=== PATIENT | female | born 1930 | race Caucasian/White ===

== ENCOUNTER 2017-04-23 18:57 | Inpatient (IN) ==
[2017-04-23] MEDS ORDERED: ALUM/MAG/SIMETH/LIDO VISC 1:1 30 ML BOTTLE PO STA (19:47)
[2017-04-23] MEDS ORDERED: METOPROLOL TARTRATE 25 MG TABLET PO STA (19:47)
[2017-04-23] MEDS ORDERED: NITROGLYCERIN 2% OINT 1 INCH/GM PACK TOP STA (19:47)
[2017-04-23] MEDS ORDERED: ONDANSETRON 4 MG/2 ML VIAL IV STA (19:47)
[2017-04-23] MEDS ORDERED: ASPIRIN 325 MG TABLET PO STA (19:47)
[2017-04-23 19:54] LABS: Basophils # 0.1 10*3/uL (0.0-0.2); Basophils % 0.6 % (0.0-0.8); Eosinophils # 0.3 10*3/uL (0.0-0.87); Eosinophils % 3.7 % (0.00-10.9); Hematocrit 38.4 VOL% (35.7-47.0); Hemoglobin 12.7 GM/DL (12.0-16.0); Immature Granulocytes % 0.3 %; Immature Granulocytes Absolute 0.02 #; Lymphocytes # 2.3 10*3/uL (1.4-4.0); Lymphocytes % 28.7 % (21.3-54.2); Mean Corpuscular HGB Conc 33.1 GM/DL (32-36); Mean Corpuscular Hemoglobin 33 PG (27-34); Mean Corpuscular Volume 100.5 FL (87-102); Mean Platelet Volume 10.3 FL (9.6-12.0); Monocytes # 0.5 10*3/uL (0.11-0.8); Monocytes % 5.9 % (1.7-12.7); Neutrophils # 4.8 10*3/uL (1.4-7.4); Neutrophils % 60.8 % (38.7-73.9); Platelet Count 304 T/CUMM (130-400); Red Blood Count 3.82 MC/CUMM (3.8-5.5); Red Cell Distribution Width 12.9 % (9.3-17.3); White Blood Count 7.9 T/CUMM (4-12)
[2017-04-23 20:00] LABS: PT Patient Result 10.4 SECS
[2017-04-23 20:17] LABS: Alanine Aminotransferase 22 U/L (13-56); Alkaline Phosphatase 181 U/L (45-117); Aspartate Amino Transferase 21 U/L (0-37); Bilirubin,Total < 0.39 MG/DL (0.2-1.0); Blood Urea Nitrogen 34 MG/DL (7-18); Calcium 8.7 MG/DL (8.5-10.1); Glucose 133 MG/DL (74-106); Magnesium 2.3 MG/DL (1.8-2.4); Osmolality,Calculated 297.7 MOS/KG (273-304); Sodium 145 MMOL/L (136-145)
[2017-04-23] MEDS ORDERED: NITROGLYCERIN 2% OINT 1 INCH/GM PACK TOP ONE (20:23)
[2017-04-23] MEDS ORDERED: ONDANSETRON 4 MG/2 ML VIAL ONE (20:23)
[2017-04-23] MEDS ORDERED: METOPROLOL TARTRATE 25 MG TABLET ONE (20:23)
[2017-04-23] MEDS ORDERED: ASPIRIN 325 MG TABLET ONE (20:23)
[2017-04-23] MEDS ORDERED: ALUM/MAG/SIMETH/LIDO VISC 1:1 30 ML BOTTLE PO ONE (20:24)
--- NOTE | 2017-04-23 20:48 | XRay Report ---
Exam: XR chest 1V portable Indication: Chest pain, history of coronary artery disease, CABG Comparison study: 12/23/2016 Findings: Cardiac silhouette is mildly enlarged, similar to prior. Median sternotomy wires noted. Low lung volumes are noted. Central perihilar interstitial prominence is similar prior likely representing scarring changes. No definite focal consolidation, pneumothorax or pleural effusion is identified. Impression: Essentially stable chronic interstitial changes and low lung volumes. No definite acute process identified. PROCEDURE INTERPRETED AT [facility] [place] DEPARTMENT OF RADIOLOGY Final Report Signed by: Viktor Aviles
--- NOTE | 2017-04-23 21:52 | Emergency Department Note ---
IAbdi Emily, am scribing for, and in the presence of, Rubén Owens MD 19: 54. Roman Dahl Charles R, MD, personally performed the services described in this documentation, ascribed by Yessenia Patton in my presence, and it is both accurate and complete . Arrival - Arrival Chief Complaint: Chest Pain Stated Complaint: SOB ED Nursing Triage Note: C/C pain between shoulder blades, short of breath, productive cough started earlier today. Mode of Arrival: Wheelchair Limitations: No Limitations Source: Patient - History of Present Illness HPI Narrative: Pt is a 86 y/o female who came to ED with c/o SOB and chest pain that has been ongoing for awhile. Pt has associated sxs of pain between shoulder blades and QUINTERO, mild productive cough and drinking water sometimes comes back up. Pt is on at home O2, especially when sleeps. Pt takes Lasix and Eliquis. PMHx of CHF , HTN, CAD. Onset (ago): hour(s) Consistency: constant Severity: moderate Severity scale (1-10): 5 Quality: aching Allergies/Adverse Reactions: Allergies Allergy/AdvReac Type Severity Reaction Status Date / Time morphine AdvReac ITCHING Verified 04/23/17 19:10 Home Medications: Home Medications Medication Instructions Recorded Confirmed Type Ergocalciferol [Drisdol] 50,000 unit PO Q30D 07/03/16 04/23/17 History Ezetimibe [Zetia] 10 mg PO DAILY 07/03/16 04/23/17 History Folic Acid Tab 1 mg PO DAILY 07/03/16 04/23/17 History Gabapentin Cap/Tab [Neurontin 400 mg PO QID 07/03/16 04/23/17 History Cap/Tab] Isosorbide Mononitrate [Isosorbide 30 mg PO DAILY 07/03/16 04/23/17 History Mononitrate ER] Nitroglycerin Sl Tab [Nitrostat] 0.4 mg SL Q5M PRN 07/03/16 04/23/17 History Omeprazole 40 mg PO DAILY 07/03/16 04/23/17 History metHOTREXate sodium [Methotrexate] 0.8 ml IJ FR 07/03/16 04/23/17 History Montelukast Tab [Singulair Tab] 10 mg PO BEDTIME tablet 07/14/16 04/23/17 Rx Apixaban [Eliquis] 5 mg PO BID #60 tablet 08/05/16 04/23/17 Rx Furosemide Tab [Lasix Tab] 20 mg PO DAILY 09/02/16 04/23/17 History Tizanidine HCl [Zanaflex] 2 mg PO TID 09/02/16 04/23/17 History Aspirin Chew Tab 81 mg PO DAILY tablet 09/22/16 04/23/17 Rx Meloxicam [Mobic] 7.5 mg PO BID #60 tablet 09/22/16 04/23/17 Rx Potassium Chloride Cap/Tab [Micro 8 meq PO DAILY #30 capsule 09/22/16 04/23/17 Rx K] amLODIPine [Norvasc] 5 mg PO DAILY #30 tablet 09/22/16 04/23/17 Rx busPIRone [Buspar] 5 mg PO BID PRN 12/23/16 04/23/17 History Eszopiclone [Eszopiclone] 3 mg PO BEDTIME 04/23/17 04/23/17 History Hydrocodone/Acetaminophen [[place] 1 each PO Q6H PRN 04/23/17 04/23/17 History 7.5-325 Tablet] Review of System - Review of System 12 point system: reviewed and no additional remarkable complaints except as stated - Review of System Constitutional: Absent: chills, fever Respiratory: Present: cough (productive; mild), respiratory distress Cardiovascular: Present: chest pain, dyspnea on exertion. Absent: orthopnea Gastrointestinal: Absent: abdominal pain, nausea, vomiting Musculoskeletal: Absent: arm pain, back pain Skin: Absent: rash Neurological: Absent: headache Medical,Surgical,& Family Hx - Medical History Cardio: History of: CHF, CAD (Since 1984), Hypertension (Since 1983) Neurology: History of: Migraine Rheumatology: History of;: Rheumatological Problems (Polymyalgia rheumatica, since 2003) Respiratory: History of: Obstructive Sleep Apnea (dx 08/10/06 with AHI 11.3 and treated with CPAP), Pulmonary Embolism (June 2016), Pneumonia (In 2013) Gastrointestinal: History of: GERD (Since 1995), GI Problems (GERD) Musculoskeletal: History of: Osteoporosis (Since 2003) No history of: Amputation - Surgical History Cardiac Surgeries: Sugical HX of: Cardiac Catheterization, Cardiac Surgery ( CABG in 1995) Thoracic Surgeries: Patient denies;: Organ Transplant HEENT Surgeries: Surgical HX of: Eye Surgery (Eyelashes were turned down in right eye, so had surgery to repair in 2010.) Patient denies: Thyroid Surgery, Tonsilectomy & Adenoidectomy Abdominal Surgeries: Surgical HX of: Appendectomy (In 1995), Cholecystectomy ( In 1995) Reproductive Surgeries: Surgical HX of;: Section (Had 3 c-sections.), Hysterectomy (Yes, 34 years ago.) Patient denies;: Genitourinary Surgery, Gynecologic Surgery Orthopedic Surgeries: Patient denies;: Implanted Devices, Orthopedic Surgery, Spinal Surgery, Total Hip Replacement, Total Knee Replacement - Family History Family History: Reports;: Family Diabetes (SON), Family Heart Disease (FATHER), Family Hypertension (BOTH PARENTS & BROTHER), Family Stroke (MOTHER) Denies;: Family Anesthesia Reaction, Family Cancer, Family Psychiatric Problems - Social History Smoking Status: Former smoker Frequency of Alcohol Use: None Type of Drug Use: None Marital Status: Lives With:: Spouse Functional capacity: independent ambulation Exam Vital Signs: Vital Signs Temperature 98.8 F 04/23/17 19:00 Pulse Rate 90 04/23/17 19:00 Respiratory Rate 22 04/23/17 19:31 Blood Pressure 145/72 04/23/17 19:00 O2 Sat by Pulse Oximetry 92 L 04/23/17 19:00 - General General appearance: alert, in no apparent distress - Head Head exam: Present: atraumatic, normocephalic - Eye Eye exam: Present: PERRL, EOMI - ENT ENT exam: Present: mucous membranes moist. Absent: mucous membranes dry - Neck Neck exam: Present: full ROM. Absent: tenderness - Chest Chest inspection: Present: symmetric chest wall rise. Absent: tenderness - Respiratory Respiratory exam: Present: accessory muscle use (several words at a time; not a full sentence), rales (bilaterally), respiratory distress (mild), wheezes ( expiratory only). Absent: normal lung sounds bilaterally - Cardiovascular Cardiovascular exam: Present: murmur (2 out of 6 ). Absent: rubs, gallop - Abdominal Exam Abdominal exam: Present: soft. Absent: distention, tenderness - Extremities Exam Extremities exam: Present: full ROM, pedal edema (+1). Absent: tenderness - Back Exam Back exam: Present: full ROM, tenderness (reproducible at the paraspinal muscle) - Neurological Exam Neurological exam: Present: alert, oriented X3, CN II-XII intact. Absent: motor sensory deficit - Psychiatric Psychiatric exam: Present: normal affect, normal mood - Skin Skin exam: Present: warm, dry Course - Reevaluation(s) Reevaluation #1: Patient reevaluated feels much better will admit for chest pain rule out Time: 21:52 - Consultations Consultation #1: Dr. Nixon will admit patient Time: 21:50 Results - Labs CBC & BMP: 04/23/17 19:27 04/23/17 19:27 Lab Results: I have reviewed the patients labs Labs: Laboratory Tests 04/23/17 19:27 Anion Gap 16.0 H BUN 34 H Creatinine 1.50 H BUN/Creatinine Ratio 22.00 H Glucose 133 H Alkaline Phosphatase 181 H Laboratory Tests 04/23/17 19:27 B-Natriuretic Peptide 31 - Diagnostic Findings Procedure: Chest x-ray: report reviewed by me (Essentially stable chronic interstitial changes and low lung volmues. No definite acute process identified. ) Disposition Clinical Impression: Atypical chest pain, Debility, History of pulmonary embolus (PE), Chronic anticoagulation Case discussed with: patient, patient's family Disposition: Still a Patient Condition: Stable Time of Disposition: 21:52
[2017-04-23] MEDS ORDERED: ALBUTEROL/IPRATROPIUM 3 ML NEB RESP TX PRN (23:41)
[2017-04-23] MEDS ORDERED: ONDANSETRON 4 MG/2 ML VIAL IV PRN (23:41)
[2017-04-23] MEDS ORDERED: LACTULOSE 20 GM/30 ML UDCUP PO PRN (23:41)
[2017-04-23] MEDS ORDERED: NITROGLYCERIN SL 0.4 MG TABLET SL PRN (23:41)
[2017-04-23] MEDS ORDERED: ERGOCALCIFEROL 50,000 UNIT CAPSULE PO SCH (23:41)
[2017-04-23] MEDS ORDERED: busPIRone 5 MG TABLET PO PRN (23:41)
[2017-04-24] MEDS: SODIUM CHLORIDE 0.9% 1,000 ML IV SCH (00:04)
[2017-04-24] MEDS: ACETAMINOPHEN 325 MG TABLET PO PRN (00:05)
[2017-04-24 02:14] LABS: Basophils % 0.5 % (0.0-0.8); Eosinophils # 0.3 10*3/uL (0.0-0.87); Eosinophils % 3.3 % (0.00-10.9); Hematocrit 34.2 VOL% (35.7-47.0); Hemoglobin 11.1 GM/DL (12.0-16.0); Immature Granulocytes % 0.5 %; Immature Granulocytes Absolute 0.04 #; Lymphocytes # 2.6 10*3/uL (1.4-4.0); Lymphocytes % 33.6 % (21.3-54.2); Mean Corpuscular HGB Conc 32.5 GM/DL (32-36); Mean Corpuscular Hemoglobin 32 PG (27-34); Mean Corpuscular Volume 99.7 FL (87-102); Mean Platelet Volume 10.3 FL (9.6-12.0); Monocytes # 0.5 10*3/uL (0.11-0.8); Neutrophils # 4.3 10*3/uL (1.4-7.4); Neutrophils % 56.1 % (38.7-73.9); Platelet Count 269 T/CUMM (130-400); Red Blood Count 3.43 MC/CUMM (3.8-5.5); Red Cell Distribution Width 13.1 % (9.3-17.3); White Blood Count 7.6 T/CUMM (4-12)
[2017-04-24 03:04] LABS: Albumin 3.6 G/DL (3.4-5.0); Bilirubin,Total 0.4 MG/DL (0.2-1.0); Calcium 8.4 MG/DL (8.5-10.1); Magnesium 2.4 MG/DL (1.8-2.4); Osmolality,Calculated 296.7 MOS/KG (273-304); Potassium 4.7 MMOL/L (3.5-5.1); Risk Ratio 3.12; Total Protein 6.2 G/DL (6.4-8.3); VLDL CHOLESTEROL 23.8 MG/DL
--- NOTE | 2017-04-24 07:57 | XRay Report ---
XR chest 2V Indication: SOB Comparison: Chest x-ray dated April 23, 2017 Technique: Frontal and lateral views of the chest. Findings: Continued cardiomegaly status post sternotomy. Chronic change of the lungs without focal consolidation, pleural effusion, or pneumothorax. Visualized osseous and surrounding soft tissue structures appear grossly unchanged. Diffuse osteopenia and vertebroplasty change of a lower thoracic vertebra. IMPRESSION: No significant interval change. PROCEDURE INTERPRETED AT [facility] DEPARTMENT OF RADIOLOGY Final Report Signed by: Dr Rich Lambert
--- NOTE | 2017-04-24 08:20 | EKG Report ---
Stationary ECG Study [facility] ER Test Date: 04/23/2017 7:06:12 PM Pat Name: EMILEE KELLY Department: Room: 292 Gender: F Jack[place]ooler: : 1930 Requested by: Rubén Avalos Order Number: [id number] Reading MD: CHUN DON Intervals [place] Rate: 93 P: 27 LA: 137 QRS: 1 QRSD: 94 T: 67 QT: 357 QTc: 408 Interpretive Statements SINUS RHYTHM INFERIOR INFARCT, PROBABLY OLD MINIMAL ST DEPRESSION Electronically Signed On 04-25-17 12:52:10 CDT by CHUN DON [email or web address]
[2017-04-24] MEDS ORDERED: NON-FORMULARY MEDICATION (Omeprazole [Omeprazole] 40 MG) PO SCH (09:00)
[2017-04-24] MEDS ORDERED: FUROSEMIDE 20 MG TABLET PO SCH (09:00)
[2017-04-24] MEDS: tiZANidine 4 MG TABLET PO SCH ×3 (09:01→21:07)
[2017-04-24] MEDS: amLODIPine 5 MG TABLET PO SCH (09:01)
[2017-04-24] MEDS: POTASSIUM CHLORIDE 8 MEQ CAPSULE PO SCH (09:01)
[2017-04-24] MEDS: ASPIRIN CHEW 81 MG TABLET PO SCH (09:01)
[2017-04-24] MEDS: MELOXICAM 7.5 MG TABLET PO SCH ×2 (09:01→21:07)
[2017-04-24] MEDS: DOCUSATE SODIUM 100 MG CAPSULE PO SCH ×2 (09:02→21:07)
[2017-04-24] MEDS: GABAPENTIN 400 MG CAPSULE PO SCH ×4 (09:02→21:06)
[2017-04-24] MEDS: ISOSORBIDE MONONITRATE 30 MG TABLET PO SCH (09:02)
[2017-04-24] MEDS: methylPREDNISolone SOD SUC 40 MG/1 ML VIAL IV SCH ×2 (09:03→21:07)
[2017-04-24] MEDS: EZETIMIBE 10 MG TABLET PO SCH (09:03)
[2017-04-24] MEDS: APIXABAN 5 MG TABLET PO SCH ×2 (09:03→21:07)
[2017-04-24] MEDS: FOLIC ACID 1 MG TABLET PO SCH (09:03)
[2017-04-24] MEDS: FUROSEMIDE 20 MG/2 ML VIAL IV SCH ×2 (09:04→15:34)
[2017-04-24] MEDS: PANTOPRAZOLE 40 MG VIAL IV SCH (09:05)
--- NOTE | 2017-04-24 09:20 | Internal Med History&Physical ---
Assessment and Plan (1) Atypical chest pain Status: Acute Assessment and plan: 86-year-old female admitted to acute care * Atypical chest pain. Patient presented with chest pain and shortness of breath. It was between her shoulder blades and in front. She states was similar to pain when she had her CABG about 15 years ago. Her initial set of cardiac enzymes are negative. No acute EKG changes. Will consult cardiology to evaluate. 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 Patient has history of pulmonary embolism and has been on Eliquis. She will be continued on current treatment. Will check echocardiogram to see if she has developed any pulmonary hypertension * Hypertension. Blood pressure is stable. Continue current treatment * COPD. Patient will be continued on nebulizer treatment * Chronic depression. Continue current treatment * PMR. Patient receives methotrexate every Monday * Discussed with patient. Current Visit: Yes (2) History of pulmonary embolus (PE) Status: Acute Current Visit: Yes (3) Congestive heart failure Status: Acute Current Visit: No (4) Depression Status: Acute Current Visit: No (5) Hypertension Status: Acute Current Visit: No (6) Obstructive sleep apnea syndrome Status: Acute Current Visit: No (7) PMR (polymyalgia rheumatica) Status: Acute Current Visit: No History of Present Illness Chief complaint: Chest pain associated with increased shortness of breath History of present illness: Ms. Ortega is a 86 year old female with history of multiple medical problems including coronary artery disease status post CABG, hypertension, obstructive sleep apnea, bilateral pulmonary emboli, polymyalgia rheumatica, osteoarthritis and insomnia who presented to the emergency room with chest pain between her shoulder blades which was similar to the pain she had when she had heart blockage. She also has been having increased shortness of breath. She is on oxygen at home. She thinks her shortness of breath is because of increased humidity. She has been having difficulty to walk with shortness of breath. She has chronic shortness of breath. She denies any fever or chills. She is hurting in her joints. She denies any nausea vomiting or diarrhea. She lives at home alone. Her son takes good care of her and lives nearby. She has no history of alcohol use. She used to smoke heavily in the past. Home Medications Medication Instructions Recorded Confirmed Type Ezetimibe [Zetia] 10 mg PO DAILY 07/03/16 04/23/17 History Folic Acid Tab 1 mg PO DAILY 07/03/16 04/23/17 History Gabapentin Cap/Tab [Neurontin 400 mg PO BID 07/03/16 04/23/17 History Cap/Tab] Isosorbide Mononitrate [Isosorbide 30 mg PO DAILY 07/03/16 04/23/17 History Mononitrate ER] Nitroglycerin Sl Tab [Nitrostat] 0.4 mg SL Q5M PRN 07/03/16 04/23/17 History Omeprazole 40 mg PO DAILY PRN 07/03/16 04/23/17 History metHOTREXate sodium [Methotrexate] 0.8 ml IJ FR 07/03/16 04/23/17 History Montelukast Tab [Singulair Tab] 10 mg PO BEDTIME tablet 07/14/16 04/23/17 Rx Apixaban [Eliquis] 5 mg PO BID #60 tablet 08/05/16 04/23/17 Rx Furosemide Tab [Lasix Tab] 20 mg PO DAILY 09/02/16 04/23/17 History Tizanidine HCl [Zanaflex] 2 mg PO TID PRN 09/02/16 04/23/17 History Aspirin Chew Tab 81 mg PO DAILY tablet 09/22/16 04/23/17 Rx Meloxicam [Mobic] 7.5 mg PO BID #60 tablet 09/22/16 04/23/17 Rx Potassium Chloride Cap/Tab [Micro 8 meq PO DAILY #30 capsule 09/22/16 04/23/17 Rx K] amLODIPine [Norvasc] 5 mg PO DAILY #30 tablet 09/22/16 04/23/17 Rx busPIRone [Buspar] 5 mg PO BID PRN 12/23/16 04/23/17 History ACETAMIN/diphenhydrAMIN 500-25 2 tablet PO BEDTIME PRN 04/23/17 04/23/17 History [Tylenol PM] Hydrocodone/Acetaminophen [[place] 1 each PO Q6H PRN 04/23/17 04/23/17 History 7.5-325 Tablet] Allergies Allergy/AdvReac Type Severity Reaction Status Date / Time morphine AdvReac ITCHING Verified 04/23/17 19:10 Medical,Surgical,& Family Hx - Medical History Cardio: History of: CHF, CAD (Since 1984), Hypertension (Since 1983) Neurology: History of: Migraine Rheumatology: History of;: Rheumatological Problems (Polymyalgia rheumatica, since 2003) Respiratory: History of: Obstructive Sleep Apnea (dx 08/10/06 with AHI 11.3 and treated with CPAP), Pulmonary Embolism (June 2016), Pneumonia (In 2013) Gastrointestinal: History of: GERD (Since 1995), GI Problems (GERD) Musculoskeletal: History of: Osteoporosis (Since 2003) No history of: Amputation - Surgical History Cardiac Surgeries: Sugical HX of: Cardiac Catheterization, Cardiac Surgery ( CABG in 1995) Thoracic Surgeries: Patient denies;: Organ Transplant HEENT Surgeries: Surgical HX of: Eye Surgery (Eyelashes were turned down in right eye, so had surgery to repair in 2010.) Patient denies: Thyroid Surgery, Tonsilectomy & Adenoidectomy Abdominal Surgeries: Surgical HX of: Appendectomy (In 1995), Cholecystectomy ( In 1995) Reproductive Surgeries: Surgical HX of;: Section (Had 3 c-sections.), Genitourinary Surgery, Hysterectomy (Yes, 34 years ago.) Patient denies;: Gynecologic Surgery Orthopedic Surgeries: Patient denies;: Implanted Devices, Orthopedic Surgery, Spinal Surgery, Total Hip Replacement, Total Knee Replacement - Family History Family History: Reports;: Family Diabetes (SON), Family Heart Disease (FATHER), Family Hypertension (BOTH PARENTS & BROTHER), Family Stroke (MOTHER) Denies;: Family Anesthesia Reaction, Family Cancer, Family Psychiatric Problems - Social History Smoking Status: Former smoker Frequency of Alcohol Use: None Type of Drug Use: None Marital Status: Single Lives With:: Alone (Son lives nearby) Functional capacity: uses cane/walker 12 point system: reviewed and no additional remarkable complaints except as stated (As mentioned in HPI) Exam - Constitutional Vitals: Period Temp Pulse Resp BP Sys/[place] Pulse Ox Last 24 Hr 97.3 F-98.8 F 59-90 18-22 115-145/41-72 92-97 Exam: Examination: GENERAL: NAD. HEENT: PERRLA. EOMI. Mucous membranes are moist. NECK: Neck is supple. No JVD. No carotid bruit. No thyromegaly. CVS: Regular rate and rhythm. S1 and S2 are normal. Systolic ejection murmur at right upper sternal border RESPIRATORY: Lungs are clear. Air entry is decreased overall ABDOMEN: Soft and nontender. Bowel sounds are present. No hepatosplenomegaly. EXT: No edema. Peripheral pulses are present. 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 Cranial nerves II through XII are grossly intact. Motor strength is 3-4/5 SKIN: Warm and dry. MSK: No obvious deformity. Results - Labs CBC & BMP: 04/24/17 02:07 04/24/17 02:07 Lab Results: I have reviewed the past 24 hour labs Quality Measures - VTE Contraindication to Pharmacological VTE Prophylaxis: Already on Theraputic Agent , No Prophylaxis Needed
--- NOTE | 2017-04-24 17:51 | ECHO Report ---
Elyse Ortega Exam Date: 04/24/2017 10:04 Referring Physician: Technologist: Latha Jiang RDCS Age: 86 Ht (in): 65 Wt (lb): 183 Gender: F Exam Location: [facility] Echo Indications: Chest pain, unspecified, Shortness of breath, Essential (primary) hypertension, COPD, hx PE, Heart failure, unspecified, [place], CAD with previous CABG BP: 120 / 42 HR: 62 Rhythm: Sinus Technical Quality: Good IMPRESSIONS Left ventricular ejection fraction is estimated at > 55 %. Normal left ventricular wall thickness. Moderately increased left atrial size. Mild mitral annular and leaflet calcification with mild mitral regurgitation. Mild to moderate aortic valve regurgitation. Aortic valve sclerosis without stenosis. Trace to mild tricuspid valve regurgitation. Tricuspid regurgitation velocities suggest a PAP of 39 mmHg. MEASUREMENTS (Male / Female) Normal Values 2D ECHO LV Diastolic Diameter PLAX 4.9 cm 4.2 - 5.9 / 3.9 - 5.3 cm LV Systolic Diameter PLAX 3.3 cm LV Fractional Shortening PLAX 31.8 % IVS Diastolic Thickness 0.9 cm 0.6 - 1.0 / 0.6 - 0.9 cm LVPW Diastolic Thickness 0.9 cm 0.6 - 1.0 / 0.6 - 0.9 cm RV Internal Dim ED PLAX 2.3 cm Aortic Root Diameter 3.2 cm LA Systolic Diameter LX 4.7 cm 3.0 - 4.0 / 2.7 - 3.8 cm DOPPLER TR Peak Velocity 269.0 cm/s TR Peak Gradient 28.9 mmHg FINDINGS Left Ventricle Normal left ventricular cavity size. Normal left ventricular wall thickness. Left ventricular ejection fraction is estimated at 55 %. Right Ventricle The right ventricle is normal in size and function. Right Atrium The right atrium is normal in size. Left Atrium Moderately increased left atrial size. Mitral Valve Mild mitral annular and leaflet calcification with mild mitral regurgitation. Aortic Valve Aortic valve sclerosis without stenosis. Mild to moderate aortic valve regurgitation. Tricuspid Valve Morphologically normal tricuspid valve. Trace to mild tricuspid valve regurgitation. Tricuspid regurgitation velocities suggest a PAP of 39 mmHg. Pulmonic Valve Morphologically normal pulmonic valve without significant stenosis. There is no pulmonic regurgitation. Pericardium Normal pericardium without effusion. Aorta Normal ascending aorta dimension. Peterson Dubois MD (Electronically Signed) Final Date: 24 April 2017 17:49
[2017-04-24] MEDS: ZALEPLON 5 MG CAPSULE PO SCH (21:06)
[2017-04-24] MEDS: MONTELUKAST 10 MG TABLET PO SCH (21:07)
--- NOTE | 2017-04-24 22:59 | Cardiology Consult Note ---
I, Tonia Hollins RN, am scribing for, and in the presence of, Peterson Dubois MD 22:58. Assessment and Plan - Time spent with patient Time spent with patient: Greater than 30 minutes (Due to assessment, planning, documentation, medication review) (1) Chest pain Status: Acute Assessment and plan: She states her chest pain is like what she had prior to her bypass, but it was relieved when she took a GI cocktail Impression diagnosis would include GI related, muscle skeletal, or CAD Plan/recommendation: Her troponins are negative, suggesting the chest pain is noncardiac I discussed with the patient about doing a stress test or a heart cath. She declines. She says she is too old. I believe is reasonable, given her comorbidities and overall declining health My suspicion is that her chest pain is not cardiac related Cardiac isoenzymes EKGs Treat GI Treat muscle skeletal Consider GI evaluation given she is having some dysphagia. May benefit from a scope and dilatation In the course of the evaluation, it was decided the patient needed to have an echocardiogram for the pts management. It was ordered. I will review it. Thank you for allowing me to participate in this patient's care Current Visit: Yes (2) Shortness of breath Status: Acute Current Visit: Yes (3) CAD (coronary artery disease) Status: Chronic Current Visit: Yes Qualifiers: Coronary Disease-Associated Artery/Lesion type: bypass graft [place] vs. transplanted heart: [place] heart (4) History of coronary artery bypass graft Status: Chronic Current Visit: Yes (5) Chronic anticoagulation Status: Chronic Current Visit: Yes (6) History of pulmonary embolus (PE) Status: Resolved Current Visit: No (7) Hypertension Status: Chronic Current Visit: Yes History of Present Illness - Data of Consult Patient: known to practice within the last 3 years Consult date: 04/23/17 Requesting Physician: Rubén Owens - Consult Narrative Reason for consult: Chest pain, shortness of breath History of present illness: Roll Hand: Dr. Dubois PCP: Dr. Nixon Ms. Ortega is a 86 year old female who is routinely followed by Dr. Dubois with a history of CHF, CAD, chronic renal insufficiency, sleep apnea , hypertension, and depression. She does not use CPAP or BiPAP as she reports she is intolerant, she has oxygen at home that she uses every night and as needed. Echo done December 27, 2016 with ejection fraction 55%, mild mitral regurgitation, moderate aortic regurgitation, mild tricuspid regurgitation, and trace pulmonic regurgitation. She had coronary artery bypass surgery Dr. Jha in August 2001 with DENNEY to the LAD and SVG to the diagonal circumflex marginal and RCA. Her most recent heart cath was done in August 2003 with angioplasty to the diagonal. She had Ekos done July 12, 2016 for bilateral pulmonary emboli. She still takes baby aspirin daily and Eliquis 5 mg p.o. twice daily. Other surgical history includes cholecystectomy, appendectomy, bilateral cataract, right wrist, and hysterectomy. Family history includes mother with stroke, father with heart disease, some with diabetes, and hypertension in both parents and siblings. She reports she is a lifetime non- smoker except for some occasional social smoking. She lives with her son, uses a cane to assist with ambulation and has not had any falls in the last year. She has chronic shortness of breath that is worse with exertion, however she reports 2 to 3 days ago she became more short of breath and noted she was having to use her oxygen more. Yesterday she developed pain in the center of her chest that went through to her back. She describes it as a dull tightness that felt like she had before her CABG. She rates it an 8 on a scale of 1-10 when it was at its worse. She denies any specific triggers. She reports it was relieved after given a GI cocktail in the emergency department. Troponin has been negative 3, BNP was 31 admission. EKG on admission showed sinus rhythm with heart rate of 93. Chest x-ray showed no acute changes. Echo is pending. Today Ms. Ortega is seen resting in bed in no acute distress. She is any chest pain at present, stating she has not had any since it was relieved in the emergency department. She continues to be short of breath with oxygen use via nasal cannula, but states this is about her baseline. She denies any palpitations or dizziness. 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 CC: Navin Nixon MD - Home Medications and Allergies Home Medications: Home Medications Medication Instructions Recorded Confirmed Type Ezetimibe [Zetia] 10 mg PO DAILY 07/03/16 04/23/17 History Folic Acid Tab 1 mg PO DAILY 07/03/16 04/23/17 History Gabapentin Cap/Tab [Neurontin 400 mg PO BID 07/03/16 04/23/17 History Cap/Tab] Isosorbide Mononitrate [Isosorbide 30 mg PO DAILY 07/03/16 04/23/17 History Mononitrate ER] Nitroglycerin Sl Tab [Nitrostat] 0.4 mg SL Q5M PRN 07/03/16 04/23/17 History Omeprazole 40 mg PO DAILY PRN 07/03/16 04/23/17 History metHOTREXate sodium [Methotrexate] 0.8 ml IJ FR 07/03/16 04/23/17 History Montelukast Tab [Singulair Tab] 10 mg PO BEDTIME tablet 07/14/16 04/23/17 Rx Apixaban [Eliquis] 5 mg PO BID #60 tablet 08/05/16 04/23/17 Rx Furosemide Tab [Lasix Tab] 20 mg PO DAILY 09/02/16 04/23/17 History Tizanidine HCl [Zanaflex] 2 mg PO TID PRN 09/02/16 04/23/17 History Aspirin Chew Tab 81 mg PO DAILY tablet 09/22/16 04/23/17 Rx Meloxicam [Mobic] 7.5 mg PO BID #60 tablet 09/22/16 04/23/17 Rx Potassium Chloride Cap/Tab [Micro 8 meq PO DAILY #30 capsule 09/22/16 04/23/17 Rx K] amLODIPine [Norvasc] 5 mg PO DAILY #30 tablet 09/22/16 04/23/17 Rx busPIRone [Buspar] 5 mg PO BID PRN 12/23/16 04/23/17 History ACETAMIN/diphenhydrAMIN 500-25 2 tablet PO BEDTIME PRN 04/23/17 04/23/17 History [Tylenol PM] Hydrocodone/Acetaminophen [[facility] 1 each PO Q6H PRN 04/23/17 04/23/17 History 7.5-325 Tablet] Allergies/Adverse Reactions: Allergies Allergy/AdvReac Type Severity Reaction Status Date / Time morphine AdvReac ITCHING Verified 04/23/17 19:10 - Constitutional Constitutional: Present: as per HPI - EENT Eyes: Present: blurry vision, requires corrective lense Ears: Absent: ear pain, tinnitus Nose, mouth and throat: Present: headache(s). Absent: epistaxis - Cardiovascular Cardiovascular: Present: chest pain at rest, dyspnea, dyspnea on exertion, lightheadedness. Absent: edema, radiating jaw, neck or arm pain, orthopnea, palpitations - Respiratory Respiratory: Present: dyspnea, dyspnea on exertion. Absent: cough, hemoptysis, wheezing - Gastrointestinal Gastrointestinal: Present: constipation, diarrhea. Absent: abdominal pain, hematemesis, hematochezia, melena, nausea, vomiting - Genitourinary Genitourinary: Absent: dysuria, hematuria - Musculoskeletal Musculoskeletal: Present: limited range of motion, muscle weakness - Neurological Neurological: Present: abnormal gait, abnormal speech, dizziness, headache(s). Absent: frequent falls, syncope - Psychiatric Psychiatric: Present: depression. Absent: confusion - Endocrine Endocrine: Present: fatigue - Hematologic/Lymphatic Hematologic/Lymphatic: Present: easy bruising. Absent: easy bleeding Medical,Surgical,& Family Hx - Medical History Cardio: History of: CHF, CAD, Hypertension Neurology: History of: Migraine Rheumatology: History of;: Rheumatological Problems (Polymyalgia rheumatica, since 2003) Respiratory: History of: Obstructive Sleep Apnea, Pulmonary Embolism (June 2016), Pneumonia Gastrointestinal: History of: GERD, GI Problems (GERD) Musculoskeletal: History of: Osteoporosis Hematology: History of: Bleeding Problems (Pulmonary emboli) - Surgical History Cardiac Surgeries: Sugical HX of: Cardiac Catheterization, Cardiac Surgery ( CABG in 2000) HEENT Surgeries: Surgical HX of: Eye Surgery (Bilateral cataracts as well as eyelid surgery) Abdominal Surgeries: Surgical HX of: Appendectomy, Cholecystectomy Reproductive Surgeries: Surgical HX of;: Section (Had 3 c-sections.), Genitourinary Surgery, Hysterectomy (Yes, 34 years ago.) Additional Surgical History: Ekos for bilateral pulmonary emboli in 2016 - Family History Family History: Reports;: Family Diabetes (SON), Family Heart Disease (FATHER), Family Hypertension (BOTH PARENTS & BROTHER), Family Stroke (MOTHER) - Social History Smoking Status: Never smoker (Reports she smoked socially in the past) Have you smoked in the last 12 months: No Frequency of Alcohol Use: Rarely Type of Drug Use: None Lives With:: Children Functional capacity: uses cane/walker Physical Examination Vital Signs Temp Pulse Resp BP Pulse Ox 98.8 F 90 20 145/72 92 L 04/23/17 19:00 04/23/17 19:00 04/23/17 19:00 04/23/17 19:00 04/23/17 19:00 General: Present: Appears Well, No Apparent Distress HEENT: Present: PERRL, Mucus Membranes Moist Neck: Present: Supple Neck, Midline Trachea, No Bruit Cardiac: Present: Reg Rate and Rhythm, Systolic Murmur Lungs: Present: Normal Breath Sounds, Oxygen (Via nasal cannula), No Wheeze, Rales, Rhonchi Neuro: Absent: Resting Tremor, Essential Tremor Abdomen: Present: Soft, Active Bowel Sounds, Non-Tender Skin: Absent: Rash, Suspicious Lesions Musculoskeletal: Present: Decreased Range of Motion Gait: Present: Poor Gait Extremities: Present: No Edema, Normal Upper Extr. Pulses, Normal Lower Extr. Pulses. Absent: Normal Gait Result/EKG - Labs CBC & BMP: 04/24/17 02:07 04/24/17 02:07 Lab Results: I have reviewed the past 24 hour labs Labs: Laboratory Results - last 24 hr 04/23/17 04/23/17 04/23/17 19:27 19:27 19:27 WBC RBC Hgb Hct MCV MCH MCHC RDW Plt Count MPV Neut % (Auto) Lymph % (Auto) [place] % (Auto) Eos % (Auto) Baso % (Auto) Neut # (Auto) Lymph # (Auto) Hubbard # (Auto) Eos # (Auto) Baso # (Auto) Immature Gran % Nucleated RBC % Immature Gran # Nucleated RBCs # INR 1.0 PT Patient/Control Mix 10.4 Sodium 145 Potassium 4.0 Chloride 107 Carbon Dioxide 26 Anion Gap 16.0 H BUN 34 H Creatinine 1.50 H GFR Calculation 34 BUN/Creatinine Ratio 22.00 H Glucose 133 H Calculated Osmolality 297.7 Calcium 8.7 Magnesium 2.3 Total Bilirubin < 0.39 AST 21 ALT 22 Alkaline Phosphatase 181 H Troponin I B-Natriuretic Peptide 31 Total Protein 7.0 Albumin 4.0 Globulin 3.0 Albumin/Globulin Ratio 1.3 Triglycerides Cholesterol LDL Cholesterol VLDL Cholesterol HDL Cholesterol Heart Disease Risk Ratio Lipase 218.0 04/23/17 04/23/17 04/24/17 19:27 19:27 00:30 WBC 7.9 RBC 3.82 Hgb 12.7 Hct 38.4 MCV 100.5 MCH 33 MCHC 33.1 RDW 12.9 Plt Count 304 MPV 10.3 Neut % (Auto) 60.8 Lymph % (Auto) 28.7 Hubbard % (Auto) 5.9 Eos % (Auto) 3.7 Baso % (Auto) 0.6 Neut # (Auto) 4.8 Lymph # (Auto) 2.3 Hubbard # (Auto) 0.5 Eos # (Auto) 0.3 Baso # (Auto) 0.1 Immature Gran % 0.3 Nucleated RBC % 0.0 Immature Gran # 0.02 Nucleated RBCs # 0.00 INR PT Patient/Control Mix Sodium Potassium Chloride Carbon Dioxide Anion Gap BUN Creatinine GFR Calculation BUN/Creatinine Ratio Glucose Calculated Osmolality Calcium Magnesium Total Bilirubin AST ALT Alkaline Phosphatase Troponin I < 0.015 < 0.015 B-Natriuretic Peptide Total Protein Albumin Globulin Albumin/Globulin Ratio Triglycerides Cholesterol LDL Cholesterol VLDL Cholesterol HDL Cholesterol Heart Disease Risk Ratio Lipase 04/24/17 04/24/17 04/24/17 02:07 02:07 02:07 WBC 7.6 RBC 3.43 L Hgb 11.1 L Hct 34.2 L MCV 99.7 MCH 32 MCHC 32.5 RDW 13.1 Plt Count 269 MPV 10.3 Neut % (Auto) 56.1 Lymph % (Auto) 33.6 Hubbard % (Auto) 6.0 Eos % (Auto) 3.3 Baso % (Auto) 0.5 Neut # (Auto) 4.3 Lymph # (Auto) 2.6 Hubbard # (Auto) 0.5 Eos # (Auto) 0.3 Baso # (Auto) 0.0 Immature Gran % 0.5 Nucleated RBC % 0.0 Immature Gran # 0.04 Nucleated RBCs # 0.00 INR PT Patient/Control Mix Sodium 145 Potassium 4.7 Chloride 108 H Carbon Dioxide 29 Anion Gap 12.7 BUN 34 H Creatinine 1.40 H GFR Calculation 38 BUN/Creatinine Ratio 24.00 H Glucose 108 H Calculated Osmolality 296.7 Calcium 8.4 L Magnesium 2.4 Total Bilirubin 0.40 AST 18 ALT 18 Alkaline Phosphatase 162 H Troponin I B-Natriuretic Peptide 27 Total Protein 6.2 L Albumin 3.6 Globulin 2.6 Albumin/Globulin Ratio 1.3 Triglycerides 119 Cholesterol 162 LDL Cholesterol 100.0 VLDL Cholesterol 23.8 HDL Cholesterol 52 Heart Disease Risk Ratio 3.12 Lipase 04/24/17 02:07 WBC RBC Hgb Hct MCV MCH MCHC RDW Plt Count MPV Neut % (Auto) Lymph % (Auto) Hubbard % (Auto) Eos % (Auto) Baso % (Auto) Neut # (Auto) Lymph # (Auto) Hubbard # (Auto) Eos # (Auto) Baso # (Auto) Immature Gran % Nucleated RBC % Immature Gran # Nucleated RBCs # INR PT Patient/Control Mix Sodium Potassium Chloride Carbon Dioxide Anion Gap BUN Creatinine GFR Calculation BUN/Creatinine Ratio Glucose Calculated Osmolality Calcium Magnesium Total Bilirubin AST ALT Alkaline Phosphatase Troponin I < 0.015 B-Natriuretic Peptide Total Protein Albumin Globulin Albumin/Globulin Ratio Triglycerides Cholesterol LDL Cholesterol VLDL Cholesterol HDL Cholesterol Heart Disease Risk Ratio Lipase - Diagnostic Findings Procedure: Chest x-ray: report reviewed by me - EKG EKG results: interpreted by me EKG shows: sinus rhythm Quality Measures - VTE Contraindication to Pharmacological VTE Prophylaxis: Already on Theraputic Agent , No Prophylaxis Needed ISilvino Dale, MD, personally performed the services described in this documentation, ascribed by Tonia Hollins RN in my presence, and it is both accurate and complete .
[2017-04-25 05:23] LABS: Basophils % 0.1 % (0.0-0.8); Hematocrit 34.4 VOL% (35.7-47.0); Hemoglobin 11.3 GM/DL (12.0-16.0); Immature Granulocytes % 0.6 %; Immature Granulocytes Absolute 0.06 #; Lymphocytes # 0.9 10*3/uL (1.4-4.0); Lymphocytes % 8.9 % (21.3-54.2); Mean Corpuscular HGB Conc 32.8 GM/DL (32-36); Mean Corpuscular Hemoglobin 33 PG (27-34); Mean Corpuscular Volume 99.4 FL (87-102); Mean Platelet Volume 11.1 FL (9.6-12.0); Monocytes # 0.1 10*3/uL (0.11-0.8); Monocytes % 0.8 % (1.7-12.7); Neutrophils # 9.4 10*3/uL (1.4-7.4); Neutrophils % 89.6 % (38.7-73.9); Platelet Count 270 T/CUMM (130-400); Red Blood Count 3.46 MC/CUMM (3.8-5.5); Red Cell Distribution Width 12.6 % (9.3-17.3); White Blood Count 10.5 T/CUMM (4-12)
[2017-04-25 05:56] LABS: Calcium 9.2 MG/DL (8.5-10.1); Osmolality,Calculated 296.1 MOS/KG (273-304); Potassium 5.1 MMOL/L (3.5-5.1)
[2017-04-25] MEDS: EZETIMIBE 10 MG TABLET PO SCH (08:38)
[2017-04-25] MEDS: DOCUSATE SODIUM 100 MG CAPSULE PO SCH ×2 (08:38→20:13)
[2017-04-25] MEDS: POTASSIUM CHLORIDE 8 MEQ CAPSULE PO SCH (08:38)
[2017-04-25] MEDS: amLODIPine 5 MG TABLET PO SCH (08:38)
[2017-04-25] MEDS: MELOXICAM 7.5 MG TABLET PO SCH (08:39)
[2017-04-25] MEDS: ISOSORBIDE MONONITRATE 30 MG TABLET PO SCH (08:39)
[2017-04-25] MEDS: tiZANidine 4 MG TABLET PO SCH ×3 (08:39→20:13)
[2017-04-25] MEDS: ASPIRIN CHEW 81 MG TABLET PO SCH (08:39)
[2017-04-25] MEDS: FOLIC ACID 1 MG TABLET PO SCH (08:39)
[2017-04-25] MEDS: methylPREDNISolone SOD SUC 40 MG/1 ML VIAL IV SCH (08:40)
[2017-04-25] MEDS: GABAPENTIN 400 MG CAPSULE PO SCH ×4 (08:40→20:13)
[2017-04-25] MEDS: PANTOPRAZOLE 40 MG VIAL IV SCH (08:40)
[2017-04-25] MEDS: FUROSEMIDE 20 MG/2 ML VIAL IV SCH (08:40)
[2017-04-25] MEDS: APIXABAN 5 MG TABLET PO SCH (08:43)
--- NOTE | 2017-04-25 09:37 | Internal Med Progress Note ---
Assessment and Plan (1) Atypical chest pain Status: Acute Assessment and plan: 86-year-old female admitted to acute care * Atypical chest pain. Cardiac enzymes have been negative so far. Probably GI origin. Echocardiogram was noted. Will consult Dr. Smart for an EGD. Patient is on Eliquis and will hold it for now. This can be done as inpatient or outpatient * Shortness of breath. History of pulmonary embolism * Hypertension. Blood pressure is stable. Stable * COPD. Patient will be continued on nebulizer treatment * Chronic depression. Continue current treatment * PMR. Patient receives methotrexate every Monday * Discussed with patient. Current Visit: Yes (2) History of pulmonary embolus (PE) Status: Resolved Current Visit: No (3) Congestive heart failure Status: Acute Current Visit: No (4) Depression Status: Acute Current Visit: No (5) Hypertension Status: Chronic Current Visit: Yes (6) Obstructive sleep apnea syndrome Status: Acute Current Visit: No (7) PMR (polymyalgia rheumatica) Status: Acute Current Visit: No Internal Medicine - PN: Subj Interval history: Patient is feeling better this morning. She had some discomfort after eating her supper last night. She is saying that the food sticks in the lower chest wall. She denies any nausea or vomiting. She has been having some vomiting at home especially after eating her supper. Exam (Progress Note) - Constitutional Vitals: Period Temp Pulse Resp BP Sys/[place] Pulse Ox Last 24 Hr 97.4 F-98.5 F 58-70 18-20 94-152/45-68 90-98 Exam: Examination: GENERAL: NAD. NECK: Neck is supple. CVS: Regular rate and rhythm. Systolic ejection murmur at right upper sternal border RESPIRATORY: Lungs are clear. ABDOMEN: Soft and nontender. EXT: No edema. INSURANCE SERVICE REPRESENTATIVE: Nonfocal SKIN: Warm and dry. MSK: No obvious deformity. Results - Labs CBC & BMP: 04/25/17 03:49 04/25/17 03:49 Lab Results: I have reviewed the past 24 hour labs Quality Measures - VTE Contraindication to Pharmacological VTE Prophylaxis: Already on Theraputic Agent , No Prophylaxis Needed
--- NOTE | 2017-04-25 10:41 | Physician Query Form ---
CLICK EDIT DOCUMENT TO SELECT QUERY ANSWER --> OK --> SIGN Colleen Vides RN Clinical Side Gluer W) [phone] (f) [phone] [email or web address] PROVIDERS: Make your selection(s) from the choices in EACH section by typing an "x" and enter comments in the comment section. Please use your independent medical judgment in providing your response. This request does not imply that any particular answer is desired or expected. CLINICAL INDICATORS: (Providers should not edit this section) Based on documentation of "CHF", BNP=31, echo showed EF of >55%. Pt. treated with IV Lasix. Please provide further specificity regarding CHF. ACUITY: ( ) Acute ( ) Chronic ( ) Acute on Chronic ( X) Clinicallly unable to determine TYPE: ( ) Systolic (HFrEF - heart failure with reduced systolic function/EF) ( ) Diastolic (HFpEF - heart failure with preserved systolic function/EF) ( ) Combined Systolic/Diastolic ( ) Other, please specify: ( ) Clinically unable to determine ( x) The patient does NOT have CHF COMMENTS: PLEASE ALSO DOCUMENT RESPONSE IN PROGRESS NOTES AND/OR DISCHARGE SUMMARY Use of terms such as suspected, likely, or probable (associated with a specific diagnosis that is being evaluated, monitored, or treated as if it exists) are acceptable and can be restated in the discharge summary if not ruled out. MTDD
--- NOTE | 2017-04-25 11:53 | Gastrointestinal Consult Note ---
Assessment and Plan (1) Atypical chest pain Status: Acute Assessment and plan: 04/25-sudden onset of atypical chest pain, not precipitated by any known factors, with associated increased shortness of breath. History of CAD with CABG in past. History of esophageal stricture with dilation in 2010 with last endoscopy. Complaints of dysphagia. Eliquis currently being held. Continue to monitor at this time and proceed with EGD and dilation once Eliquis held 5 days. Plan an addendum to followed by Dr. Smart Current Visit: Yes History of Present Illness Chief complaint: Atypical chest pain, dysphagia History of present illness: Ms. Ortega is a 86 year old female who was admitted to the hospital with onset of atypical chest pain and increased shortness of breath. Patient has a prior history of hypertension, CAD with CABG, bilateral PE, OA, and polymyalgia rheumatica. Patient states that she was in her usual state of health until yesterday when she had an onset of pain in her chest that radiated to her shoulder blades. She states she also had an increase in shortness of breath from her baseline along with this. She is on oxygen at home on a regular basis. States that she has shortness of breath regularly. Patient states that she has a history of pulmonary emboli and due to the shortness of breath became worried and came to the emergency room for further evaluation at that time. She was diagnosed in June 2016 with bilateral PE and was put on Eliquis and baby aspirin at that time. Patient states that the pain that she had on yesterday seemed to begin suddenly, radiated to her back however was not associated with any other symptoms. She states that the pain was dull in nature and felt similar to the pain she had prior to leading up to her open heart surgery. She denied any precipitating factors associated with this however once in the ER she did have relief following the GI cocktail. At this time her cardiac workup is currently negative however cardiology is still following. Patient brought forth complaints of increased difficulty swallowing solids. She denies any dysphagia to pills or liquids. She states that in the past she has had to regurgitate her food due to it become stuck and unable to swallow. She also has reflux however states this is controlled with her Prilosec. She takes Mobic twice a day for OA pain as well. Denies any melena or hematochezia. Denies any recent weight loss. Denies any increased belching or bloating or dyspepsia. States that she has a history of esophageal stricture with dilation in the past with last known EGD in 2010. Her last colonoscopy was in 2008 with findings of diverticulosis. She did bring forth some irritation noted at the day lower abdomen where her folds of skin meet. Home Medications Medication Instructions Recorded Confirmed Type Ezetimibe [Zetia] 10 mg PO DAILY 07/03/16 04/23/17 History Folic Acid Tab 1 mg PO DAILY 07/03/16 04/23/17 History Gabapentin Cap/Tab [Neurontin 400 mg PO BID 07/03/16 04/23/17 History Cap/Tab] Isosorbide Mononitrate [Isosorbide 30 mg PO DAILY 07/03/16 04/23/17 History Mononitrate ER] Nitroglycerin Sl Tab [Nitrostat] 0.4 mg SL Q5M PRN 07/03/16 04/23/17 History Omeprazole 40 mg PO DAILY PRN 07/03/16 04/23/17 History metHOTREXate sodium [Methotrexate] 0.8 ml IJ FR 07/03/16 04/23/17 History Montelukast Tab [Singulair Tab] 10 mg PO BEDTIME tablet 07/14/16 04/23/17 Rx Apixaban [Eliquis] 5 mg PO BID #60 tablet 08/05/16 04/23/17 Rx Furosemide Tab [Lasix Tab] 20 mg PO DAILY 09/02/16 04/23/17 History Tizanidine HCl [Zanaflex] 2 mg PO TID PRN 09/02/16 04/23/17 History Aspirin Chew Tab 81 mg PO DAILY tablet 09/22/16 04/23/17 Rx Meloxicam [Mobic] 7.5 mg PO BID #60 tablet 09/22/16 04/23/17 Rx Potassium Chloride Cap/Tab [Micro 8 meq PO DAILY #30 capsule 09/22/16 04/23/17 Rx K] amLODIPine [Norvasc] 5 mg PO DAILY #30 tablet 09/22/16 04/23/17 Rx busPIRone [Buspar] 5 mg PO BID PRN 12/23/16 04/23/17 History ACETAMIN/diphenhydrAMIN 500-25 2 tablet PO BEDTIME PRN 04/23/17 04/23/17 History [Tylenol PM] Hydrocodone/Acetaminophen [[place] 1 each PO Q6H PRN 04/23/17 04/23/17 History 7.5-325 Tablet] Allergies Allergy/AdvReac Type Severity Reaction Status Date / Time morphine AdvReac ITCHING Verified 04/23/17 19:10 Medical,Surgical,& Family Hx - Medical History Cardio: History of: CHF, CAD, Hypertension Neurology: History of: Migraine Rheumatology: History of;: Rheumatological Problems (Polymyalgia rheumatica, since 2003) Respiratory: History of: Obstructive Sleep Apnea, Pulmonary Embolism (June 2016), Pneumonia Gastrointestinal: History of: GERD, GI Problems (GERD) Musculoskeletal: History of: Osteoporosis No history of: Amputation Hematology: History of: Bleeding Problems (Pulmonary emboli) - Surgical History Cardiac Surgeries: Sugical HX of: Cardiac Catheterization, Cardiac Surgery ( CABG in 2000) Thoracic Surgeries: Patient denies;: Organ Transplant HEENT Surgeries: Surgical HX of: Eye Surgery (Bilateral cataracts as well as eyelid surgery) Patient denies: Thyroid Surgery, Tonsilectomy & Adenoidectomy Abdominal Surgeries: Surgical HX of: Appendectomy, Cholecystectomy Reproductive Surgeries: Surgical HX of;: Section (Had 3 c-sections.), Genitourinary Surgery, Hysterectomy (Yes, 34 years ago.) Patient denies;: Gynecologic Surgery Orthopedic Surgeries: Patient denies;: Implanted Devices, Orthopedic Surgery, Spinal Surgery, Total Hip Replacement, Total Knee Replacement - Family History Family History: Reports;: Family Diabetes (SON), Family Heart Disease (FATHER), Family Hypertension (BOTH PARENTS & BROTHER), Family Stroke (MOTHER) Denies;: Family Anesthesia Reaction, Family Cancer, Family Psychiatric Problems - Social History Smoking Status: Never smoker (Reports she smoked socially in the past) Frequency of Alcohol Use: Rarely Type of Drug Use: None 12 point system: reviewed and no additional remarkable complaints except as stated - Constitutional Constitutional: Present: as per HPI - EENT Eyes: Present: as per HPI Ears: Present: as per HPI Nose, mouth and throat: Present: as per HPI - Cardiovascular Cardiovascular: Present: as per HPI - Respiratory Respiratory: Present: as per HPI - Gastrointestinal Gastrointestinal: Present: as per HPI, dysphagia, early satiety - Genitourinary Genitourinary: Present: as per HPI - Musculoskeletal Musculoskeletal: Present: as per HPI, arthralgias - Neurological Neurological: Present: as per HPI - Psychiatric Psychiatric: Present: as per HPI - Endocrine Endocrine: Present: as per HPI - Hematologic/Lymphatic Hematologic/Lymphatic: Present: as per HPI Exam - Constitutional Vitals: Period Temp Pulse Resp BP Sys/[place] Pulse Ox Last 24 Hr 97.4 F-98.5 F 58-70 18-20 94-152/45-68 90-98 General appearance: no acute distress, over weight - Head Head exam: Present: normal inspection, normocephalic - Eye Eye exam: Present: other (Lids and conjunctivae unremarkable). Absent: scleral icterus - ENT ENT exam: Present: normal exam, normal oropharynx - Neck Neck exam: Present: normal inspection - Respiratory Respiratory exam: Present: clear to auscultation bilaterally. Absent: rales, rhonchi, wheezes - Cardiovascular Cardiovascular exam: Present: regular rate and rhythm. Absent: diastolic murmur , irregular rhythm, JVD, systolic murmur - GI/Abdominal GI/Abdominal exam: Present: normal bowel sounds, soft. Absent: ascites, distended, mass, organomegaly, tenderness - Extremities Exam Extremities exam: Present: normal inspection, full ROM - Back Exam Back exam: Present: normal inspection - Neurological Exam Neurological exam: Present: alert, oriented X3 - Psychiatric Psychiatric exam: Present: normal affect, normal mood - Skin Skin exam: Present: normal color, warm, dry Results - Labs CBC & BMP: 04/25/17 03:49 04/25/17 03:49 Lab Results: I have reviewed the past 24 hour labs Quality Measures - VTE Contraindication to Pharmacological VTE Prophylaxis: Already on Theraputic Agent , No Prophylaxis Needed
[2017-04-25] MEDS: ACETAMINOPHEN 325 MG TABLET PO PRN (18:00)
[2017-04-25] MEDS: MONTELUKAST 10 MG TABLET PO SCH (20:13)
[2017-04-25] MEDS: ZALEPLON 5 MG CAPSULE PO SCH (20:13)
[2017-04-25] MEDS: SODIUM CHLORIDE 0.9% 1,000 ML IV SCH (20:43)
--- NOTE | 2017-04-26 01:05 | Cardiology Progress Note ---
I, Tonia Hollins, RN, am scribing for, and in the presence of, Peterson Dubois MD 01:03. Assessment and Plan (1) Chest pain Status: Acute Assessment and plan: Initial assessment and plan 04/24/2017: She states her chest pain is like what she had prior to her bypass, but it was relieved when she took a GI cocktail Impression diagnosis would include GI related, muscle skeletal, or CAD Plan/recommendation: Her troponins are negative, suggesting the chest pain is noncardiac I discussed with the patient about doing a stress test or a heart cath. She declines. She says she is too old. I believe is reasonable, given her comorbidities and overall declining health My suspicion is that her chest pain is not cardiac related Cardiac isoenzymes EKGs Treat GI Treat muscle skeletal Consider GI evaluation given she is having some dysphagia. May benefit from a scope and dilatation In the course of the evaluation, it was decided the patient needed to have an echocardiogram for the pts management. It was ordered. I will review it. Assessment and plan 04/25/2017: last night, with eating, she had similar chest pain. I conferred care with Dr. nixon. He and I both agree that chest pain is probably noncardiac. It probably is GI related. Possibly she has an esophageal stricture, Causing her dysphagia to solids Agree with consulting Dr. vora to evaluate Continue current cardiac meds Watch for any signs or symptoms of ischemia I discussed with the patient the overall plan. She voices understanding and agrees with the plan. We'll likely need to be off the eliquis a few days prior to the scope and dilatation. Of note, I saw and evaluated the patient on 04/25/17 at about 5 PM or so. The final note is being done later. Current Visit: Yes (2) Shortness of breath Status: Acute Current Visit: Yes (3) CAD (coronary artery disease) Status: Chronic Current Visit: Yes Qualifiers: Coronary Disease-Associated Artery/Lesion type: bypass graft [place] vs. transplanted heart: [place] heart (4) History of coronary artery bypass graft Status: Chronic Current Visit: Yes (5) Chronic anticoagulation Status: Chronic Current Visit: Yes (6) Hypertension Status: Chronic Current Visit: Yes Cardiology - PN: Subj Interval history: Patient Placement Coordinator: Dr. Dubois PCP: Dr. Nixon Ms. Ortega is seen today resting in bed in no acute distress. She denies having any further chest pain, she does report some abdominal tenderness. Oxygen is in use via nasal cannula, she reports her breathing is about her baseline. She denies any palpitations or dizziness. quality assurance monitor chassis currently shows sinus rhythm with heart rates in the 70s. Vital signs been stable. Labs are unremarkable. Echocardiogram done yesterday with ejection fraction of greater than 55%. She has seen her in consultation for abdominal pain. Exam (Progress Note) - Constitutional Vitals: Period Temp Pulse Resp BP Sys/[place] Pulse Ox Last 24 Hr 97.4 F-98.4 F 63-71 18-20 108-152/51-68 95-98 General appearance: no acute distress, over weight - Head Head exam: Absent: abrasion, hematoma - Eye Eye exam: Absent: periorbital swelling, laceration to eyelids - Neck Neck exam: Absent: tenderness - Respiratory Respiratory exam: Present: clear to auscultation bilaterally, other (Oxygen use intermittently). Absent: accessory muscle use, chest wall tenderness - Cardiovascular Cardiovascular exam: Present: regular rate and rhythm - GI/Abdominal GI/Abdominal exam: Present: normal bowel sounds, tenderness, soft. Absent: distended - Extremities Exam Extremities exam: Absent: edema - Neurological Exam Neurological exam: Present: alert, oriented X3 - Psychiatric Psychiatric exam: Present: normal affect, normal mood - Skin Skin exam: Present: warm, dry Result/EKG - Labs CBC & BMP: 04/25/17 03:49 04/25/17 03:49 Lab Results: I have reviewed the past 24 hour labs Labs: Laboratory Results - last 24 hr 04/25/17 04/25/17 03:49 03:49 WBC 10.5 D RBC 3.46 L Hgb 11.3 L Hct 34.4 L MCV 99.4 MCH 33 MCHC 32.8 RDW 12.6 Plt Count 270 MPV 11.1 Neut % (Auto) 89.6 H Lymph % (Auto) 8.9 L [place] % (Auto) 0.8 L Eos % (Auto) 0.0 Baso % (Auto) 0.1 Neut # (Auto) 9.4 H Lymph # (Auto) 0.9 L [place] # (Auto) 0.1 L Eos # (Auto) 0.0 Baso # (Auto) 0.0 Immature Gran % 0.6 Nucleated RBC % 0.0 Immature Gran # 0.06 Nucleated RBCs # 0.00 Sodium 142 Potassium 5.1 Chloride 106 Carbon Dioxide 26 Anion Gap 15.1 H BUN 37 H Creatinine 1.40 H GFR Calculation 38 BUN/Creatinine Ratio 26.00 H Glucose 184 H Calculated Osmolality 296.1 Calcium 9.2 - EKG EKG results: interpreted by me EKG shows: sinus rhythm Quality Measures - VTE Contraindication to Pharmacological VTE Prophylaxis: Already on Theraputic Agent , No Prophylaxis Needed ISilvino Dale, MD, personally performed the services described in this documentation, ascribed by Tonia Hollins RN in my presence, and it is both accurate and complete .
[2017-04-26 05:50] LABS: Basophils % 0.1 % (0.0-0.8); Hematocrit 32.4 VOL% (35.7-47.0); Hemoglobin 10.8 GM/DL (12.0-16.0); Immature Granulocytes % 0.6 %; Immature Granulocytes Absolute 0.09 #; Lymphocytes # 2.4 10*3/uL (1.4-4.0); Mean Corpuscular HGB Conc 33.3 GM/DL (32-36); Mean Corpuscular Hemoglobin 33 PG (27-34); Mean Corpuscular Volume 98.2 FL (87-102); Mean Platelet Volume 10.8 FL (9.6-12.0); Monocytes # 0.6 10*3/uL (0.11-0.8); Neutrophils # 11.2 10*3/uL (1.4-7.4); Neutrophils % 78.3 % (38.7-73.9); Platelet Count 244 T/CUMM (130-400); Red Cell Distribution Width 12.6 % (9.3-17.3); White Blood Count 14.3 T/CUMM (4-12)
[2017-04-26 06:21] LABS: Calcium 8.6 MG/DL (8.5-10.1); Magnesium 2.6 MG/DL (1.8-2.4); Osmolality,Calculated 290.4 MOS/KG (273-304); Potassium 4.6 MMOL/L (3.5-5.1)
--- NOTE | 2017-04-26 08:49 | Discharge Summary ---
Hospital Course - Hospital Course Hospital Course: Patient is 86-year-old female with history of coronary artery disease, status post CABG, hypertension, obstructive sleep apnea, history of bilateral pulmonary emboli, polymyalgia rheumatica, osteoarthritis, and insomnia who was admitted with atypical chest pain. She was evaluated with cardiac enzymes which were negative. She was seen in consultation by Dr. Dubois who is her regular trauma counsellor. It was felt that her pain was of GI origin. Patient was offered cardiac cath and stress test but declined it. She was seen in consultation by Dr. Smart who has recommended an EGD. Patient has been on Eliquis. Will hold it for next few days. Plan is to do an EGD as an outpatient either Monday or Monday. She will resume her Eliquis after her EGD. Patient is ready to be discharged home. She will keep her regular appointment Diagnosis - Discharge Diagnosis (1) Atypical chest pain Status: Acute (2) Congestive heart failure Status: Acute (3) Depression Status: Acute (4) Hypertension Status: Chronic (5) Obstructive sleep apnea syndrome Status: Acute (6) PMR (polymyalgia rheumatica) Status: Acute Discharge Plan - Discharge Data Disposition: Disch To Home/Self Care Condition at Discharge: Stable Discharge Diet: advance to your usual diet Activity: resume usual activities as tolerated - Discharge Medications New Ergocalciferol [Drisdol] 50,000 unit PO Q30D capsule Continue Ezetimibe [Zetia] 10 mg PO DAILY Folic Acid Tab 1 mg PO DAILY Gabapentin Cap/Tab [Neurontin Cap/Tab] 400 mg PO BID Isosorbide Mononitrate [Isosorbide Mononitrate ER] 30 mg PO DAILY metHOTREXate sodium [Methotrexate] 0.8 ml IJ FR Nitroglycerin Sl Tab [Nitrostat] 0.4 mg SL Q5M PRN PRN Reason: Chest Pain Omeprazole 40 mg PO DAILY PRN PRN Reason: Reflux Montelukast Tab [Singulair Tab] 10 mg PO BEDTIME tablet Hydrocodone/Acetaminophen [[place] 7.5-325 Tablet] 1 each PO Q6H PRN PRN Reason: Pain busPIRone [Buspar] 5 mg PO BID PRN PRN Reason: Anxiety ACETAMIN/diphenhydrAMIN 500-25 [Tylenol PM] 2 tablet PO BEDTIME PRN PRN Reason: Sleep Tizanidine HCl [Zanaflex] 2 mg PO TID PRN PRN Reason: Spasms Furosemide Tab [Lasix Tab] 20 mg PO DAILY Aspirin Chew Tab 81 mg PO DAILY tablet Potassium Chloride Cap/Tab [Micro K] 8 meq PO DAILY #30 capsule amLODIPine [Norvasc] 5 mg PO DAILY #30 tablet Discontinued Apixaban [Eliquis] 5 mg PO BID #60 tablet Meloxicam [Mobic] 7.5 mg PO BID #60 tablet - Follow Up or Referral - Forms/Instructions Additional Discharge Instructions: Keep regular appointment as scheduled. Hold Eliquis still a EGD and resume after that. Set up EGD with Dr. Smart either this Monday or Monday Exam - Constitutional Vitals: Period Temp Pulse Resp BP Sys/[place] Pulse Ox Last 24 Hr 97.6 F-98.4 F 60-73 16-20 108-140/47-61 95-97 Exam: Examination: GENERAL: NAD. NECK: Neck is supple. CVS: Regular rate and rhythm. Systolic ejection murmur at right upper sternal border RESPIRATORY: Lungs are clear. ABDOMEN: Soft and nontender. EXT: No edema. TEST MANAGER: Nonfocal SKIN: Warm and dry. MSK: No obvious deformity. Discharge Results Procedures and tests throughout hospitalization: Pending Orders 04/27/17 04:00 BMP w/ Mg [Basic Metabolic Panel w/Mg] IN AM CBC [Comp Blood Count Auto Diff] IN AM 04/28/17 04:00 BMP w/ Mg [Basic Metabolic Panel w/Mg] IN AM CBC [Comp Blood Count Auto Diff] IN AM Labs on day of discharge: Labs from last 24 hours 04/26/17 04/26/17 05:24 05:24 WBC 14.3 H D RBC 3.30 L Hgb 10.8 L Hct 32.4 L MCV 98.2 MCH 33 MCHC 33.3 RDW 12.6 Plt Count 244 MPV 10.8 Neut % (Auto) 78.3 H Lymph % (Auto) 17.0 L [place] % (Auto) 4.0 Eos % (Auto) 0.0 Baso % (Auto) 0.1 Neut # (Auto) 11.2 H Lymph # (Auto) 2.4 [place] # (Auto) 0.6 Eos # (Auto) 0.0 Baso # (Auto) 0.0 Immature Gran % 0.6 Nucleated RBC % 0.0 Immature Gran # 0.09 Nucleated RBCs # 0.00 Sodium 140 Potassium 4.6 Chloride 105 Carbon Dioxide 27 Anion Gap 12.6 BUN 43 H Creatinine 1.20 H GFR Calculation 46 BUN/Creatinine Ratio 35.00 H Glucose 113 H Calculated Osmolality 290.4 Calcium 8.6 Magnesium 2.6 H DS: Provider Date of admission: 04/23/17 21:52 Primary care physician: Navin Nixon MD Attending physician on admission: Navin Nixon MD Consults: 04/23/17 23:41 Consult to Case Mgmt/Social Srvs [CONS] Routine Reason for Case Mgmt/Social Srvs: Discharge Planning Consult to Physician [CONS] Routine Comment: Chest pain Consulting Provider: Cardiology - [facility] When should Consulting Provider be notified: In am Consult to Specialist Group: Cardiology Person Notified: JUSTINE Date Notified: 04/24/17 Time Notified: 08:05 04/25/17 09:39 Consult to Physician [CONS] Routine Comment: GERD and dysphagia Consulting Provider: Paulie Smart Discharging clinician: Navin Nixon MD
[2017-04-26] MEDS: POTASSIUM CHLORIDE 8 MEQ CAPSULE PO SCH (08:57)
[2017-04-26] MEDS: tiZANidine 4 MG TABLET PO SCH (08:58)
[2017-04-26] MEDS: PANTOPRAZOLE 40 MG VIAL IV SCH (08:58)
[2017-04-26] MEDS: GABAPENTIN 400 MG CAPSULE PO SCH ×2 (08:58→14:05)
[2017-04-26] MEDS: ASPIRIN CHEW 81 MG TABLET PO SCH (08:58)
[2017-04-26] MEDS: DOCUSATE SODIUM 100 MG CAPSULE PO SCH (08:58)
[2017-04-26] MEDS: ISOSORBIDE MONONITRATE 30 MG TABLET PO SCH (08:58)
[2017-04-26] MEDS: amLODIPine 5 MG TABLET PO SCH (08:58)
[2017-04-26] MEDS: FOLIC ACID 1 MG TABLET PO SCH (08:58)
[2017-04-26] MEDS: EZETIMIBE 10 MG TABLET PO SCH (08:58)
[2017-04-26 12:11] VITALS: BP 130/57
--- NOTE | 2017-04-27 14:47 | Cardiology Progress Note ---
I, Tonia Hollins RN, am scribing for, and in the presence of, Peterson Dubois MD 14:43. Assessment and Plan (1) Chest pain Status: Acute Assessment and plan: Initial assessment and plan 04/24/2017: She states her chest pain is like what she had prior to her bypass, but it was relieved when she took a GI cocktail Impression diagnosis would include GI related, muscle skeletal, or CAD Plan/recommendation: Her troponins are negative, suggesting the chest pain is noncardiac I discussed with the patient about doing a stress test or a heart cath. She declines. She says she is too old. I believe is reasonable, given her comorbidities and overall declining health My suspicion is that her chest pain is not cardiac related Cardiac isoenzymes EKGs Treat GI Treat muscle skeletal Consider GI evaluation given she is having some dysphagia. May benefit from a scope and dilatation In the course of the evaluation, it was decided the patient needed to have an echocardiogram for the pts management. It was ordered. I will review it. Assessment and plan 04/25/2017: last night, with eating, she had similar chest pain. I conferred care with Dr. nixon. He and I both agree that chest pain is probably noncardiac. It probably is GI related. Possibly she has an esophageal stricture, Causing her dysphagia to solids Agree with consulting Dr. smart to evaluate Continue current cardiac meds Watch for any signs or symptoms of ischemia I discussed with the patient the overall plan. She voices understanding and agrees with the plan. We'll likely need to be off the eliquis a few days prior to the scope and dilatation. Assessment and plan 04/26/2017: Continue to have some chest pain after eating E scope was to be done today. Possibly with dilatation Okay with me for discharge when you say so after E scope Does have some monilia in the pubic area where there is a fold of fat over this area in her lower abdomen. I suggested she use an antifungal medication or Desenex. She can also discuss it with Dr. Nixon Okay with me to be discharged when you say so. Heart status is stable. I will see the patient back as is scheduled, I think it is in about 4-6 months. I can see her sooner should problems arise. Thank you for allowing me to participate in this patient's care Of note, I saw the patient on 04/26/17 at about 9 AM. It was before the patient was discharged. This note is being finished at a later time. (2) Shortness of breath Status: Acute (3) CAD (coronary artery disease) Status: Chronic Qualifiers: Coronary Disease-Associated Artery/Lesion type: bypass graft [place] vs. transplanted heart: [place] heart (4) History of coronary artery bypass graft Status: Chronic (5) Chronic anticoagulation Status: Chronic (6) Hypertension Status: Chronic Cardiology - PN: Subj Interval history: Sports Management Intern: Dr. Dubois PCP: Dr. Nixon Ms. Ortega is seen today resting in bed in no acute distress. She denies any chest pain, shortness of breath, palpitations, or dizziness. She does continue to have some abdominal tenderness. Oxygen is in use via nasal cannula. machine assembler for puller over currently shows sinus rhythm heart rates in the 70s. Vital signs have been stable. Labs are unremarkable. She is scheduled for discharge today with EGD to be done by Dr. Smart either Monday of this week or Monday of next week. Eliquis will be held in the meantime. Exam (Progress Note) - Constitutional Vitals: Period Temp Pulse Resp BP Sys/[place] Pulse Ox Last 24 Hr 97.6 F-98.4 F 60-73 16-20 108-140/47-61 95-97 Exam: General appearance: no acute distress, over weight - Head Head exam: Absent: abrasion, hematoma - Eye Eye exam: Absent: periorbital swelling, laceration to eyelids - Neck Neck exam: Absent: tenderness - Respiratory Respiratory exam: Present: clear to auscultation bilaterally, other (Oxygen use intermittently). Absent: accessory muscle use, chest wall tenderness - Cardiovascular Cardiovascular exam: Present: regular rate and rhythm - GI/Abdominal GI/Abdominal exam: Present: normal bowel sounds, tenderness, soft. Absent: distended - Extremities Exam Extremities exam: Absent: edema - Neurological Exam Neurological exam: Present: alert, oriented X3 - Psychiatric Psychiatric exam: Present: normal affect, normal mood - Skin Skin exam: Present: warm, dry Result/EKG - Labs CBC & BMP: 04/26/17 05:24 04/26/17 05:24 Lab Results: I have reviewed the past 24 hour labs Labs: Laboratory Results - last 24 hr 04/26/17 04/26/17 05:24 05:24 WBC 14.3 H D RBC 3.30 L Hgb 10.8 L Hct 32.4 L MCV 98.2 MCH 33 MCHC 33.3 RDW 12.6 Plt Count 244 MPV 10.8 Neut % (Auto) 78.3 H Lymph % (Auto) 17.0 L [place] % (Auto) 4.0 Eos % (Auto) 0.0 Baso % (Auto) 0.1 Neut # (Auto) 11.2 H Lymph # (Auto) 2.4 [place] # (Auto) 0.6 Eos # (Auto) 0.0 Baso # (Auto) 0.0 Immature Gran % 0.6 Nucleated RBC % 0.0 Immature Gran # 0.09 Nucleated RBCs # 0.00 Sodium 140 Potassium 4.6 Chloride 105 Carbon Dioxide 27 Anion Gap 12.6 BUN 43 H Creatinine 1.20 H GFR Calculation 46 BUN/Creatinine Ratio 35.00 H Glucose 113 H Calculated Osmolality 290.4 Calcium 8.6 Magnesium 2.6 H - EKG EKG results: interpreted by me EKG shows: sinus rhythm Quality Measures - VTE Contraindication to Pharmacological VTE Prophylaxis: Already on Theraputic Agent , No Prophylaxis Needed Specialty Discharge - Follow Up or Referrals Follow up with: Paulie Smart MD [Physician] - (EGD at 10:15am on 04/28/17 at [facility]. Check in at Admissions office located in [facility]. See attached sheet for more information regarding your EGD.) Peterson Dubois MD [Physician] - (Cancel appointment she currently has an reschedule for mid June with EKG) I, Peterson Dubois MD, personally performed the services described in this documentation, ascribed by Tonia Hollins RN in my presence, and it is both accurate and complete [id number] .
[2017-04-28] MEDS ORDERED: METHOTREXATE 50 MG/2 ML VIAL SUBCUT SCH (09:00)
== END 2017-04-26 14:15 | disposition home or self-care (01) | DRG 313 ==
LOC: N.ED 18:57 → N.EDINP 21:52 → N.TELEN 22:14
PROVIDERS: ADMIT Internal Medicine; ATTEND Internal Medicine